=== PATIENT | female | born 1990 | race African-American/Black ===

== ENCOUNTER 2016-12-27 04:06 | Emergency (ER) | payer BC, OTHER ==
[~2016-12-27] VITALS: Ht 160 cm; Wt 60.8 kg
[2016-12-27 04:31] VITALS: BP 101/76
[2016-12-27] MEDS ORDERED: IBUPROFEN 800 MG TAB PO ONE ×2 (04:42→04:45)
== END 2016-12-27 05:00 | disposition home or self-care (01) ==
LOC: ER 04:11
DX: S86.812A Strain of other muscle(s) and tendon(s) at lower leg level, left leg, initial encounter (principal); X58.XXXA Exposure to other specified factors, initial encounter; Y93.89 Activity, other specified; Y99.0 Civilian activity done for income or pay; Y92.69 Other specified industrial and construction area as the place of occurrence of the external cause

== ENCOUNTER 2017-08-03 03:35 | Emergency (ER) | payer BC, OTHER ==
[~2017-08-03] VITALS: Ht 157.5 cm; Wt 67.6 kg
[2017-08-03 05:43] LABS: Basophils # (auto) 0 uL; Basophils % (auto) 0.5 % (0.0-2.0); Eosinophils # (auto) 0 uL; Eosinophils % (auto) 0.7 % (0.0-7.0); Hematocrit 40.1 % (36.0-46.0); Hemoglobin 13.4 g/dL (12.2-16.2); Lymphocytes # (auto) 2.1 uL; Lymphocytes % (auto) 29.7 % (10.0-50.0); Mean Corpuscular Hemoglobin 30.3 pg (28.0-32.0); Mean Corpuscular Hgb Conc. 33.4 g/dL (32.0-36.0); Mean Corpuscular Volume 90.6 fL (80.0-100.0); Mean Platelet Volume 9.1 fL (6.9-10.8); Monocytes # (auto) 0.3 uL; Monocytes % (auto) 4.9 % (0.0-12.0); Neutrophils # (auto) 4.5 uL; Neutrophils % (auto) 64.2 % (37.0-80.0); Nucleated Red Blood Cells % 0.1 %; Platelet Count (auto) 291 10^3/uL (140-450); Red Cell Distribution Width 12.8 % (11.8-14.3); White Blood Cell 6.9 10^3/uL (4.4-10.8)
[2017-08-03 05:52] LABS: INR 1.02 (0.9-1.15); Partial Thromboplastin Time 27.5 sec (22.64-33.71); Prothrombin Time 11.1 sec (9.37-12.3)
[2017-08-03 06:16] LABS: Albumin 4.4 g/dL (3.4-5.0); Alkaline Phosphatase 58 U/L (45-117); Anion Gap 8 (5-15); Aspartate Aminotransferase 35 U/L (15-37); BUN/Creatinine Ratio 16.7; Blood Urea Nitrogen 15 mg/dL (7-18); Calcium 9.6 mg/dL (8.5-10.1); Carbon Dioxide 24 mmol/L (21-32); Chloride 103 mmol/L (98-107); GFR African American 97 mL/min; GFR Non-African American 80 mL/min; Glucose 82 mg/dL (74-106); Magnesium 2.3 mg/dL (1.6-2.6); Potassium 4.1 mmol/L (3.5-5.1); Sodium 135 mmol/L (136-145); Total Protein 10.3 g/dL (6.4-8.2)
[2017-08-03] MEDS ORDERED: KETOROLAC TROMETH 30 MG/ML 1ML VIAL IV ONE (07:00)
[2017-08-03] MEDS ORDERED: PROMETHAZINE HCL 25 MG/ML 1ML IV ONE (07:00)
[2017-08-03] MEDS ORDERED: ONDANSETRON HCL 4 MG/2 ML VIAL IV ONE (09:15)
[2017-08-03] MEDS ORDERED: SODIUM CHLORIDE 0.9% 1,000 ML IV ONE (09:15)
[2017-08-03 13:53] VITALS: BP 88/48
[2017-08-03 14:20] LABS: Urine Bilirubin Negative (Negative); Urine Blood Negative /uL (Negative); Urine Color Yellow (Yellow); Urine Glucose Normal (Normal); Urine Hyaline Cast FEW /lpf (0 - 2); Urine Ketone Negative (Negative); Urine Mucus MODERATE (None Seen); Urine Nitrite Negative (Negative); Urine RBC 2 /hpf (0 - 4); Urine Squamous Epithelial Cell FEW /hpf (<5)
== END 2017-08-03 14:09 | disposition home or self-care (01) ==
LOC: ER 03:38
DX: R07.89 Other chest pain (principal)
CPT/HCPCS: 36415; 71010; 80053; 80307; 81001; 81025; 83735; 84484; 85025; 85379; 85610; 85730; 93005; 94761; 96361; 96374; 96375; 99285; J1885; J2405; J2550; J7030